=== PATIENT | male | born 1960 | race Caucasian/White ===

== ENCOUNTER 2022-04-28 20:43 | Emergency (ER) | payer OTHER ==
[~2022-04-28 20:43] MED LIST: AMIODARONE HCL200 MG PO; ASPIRIN EC81 MG PO; ATORVASTATIN CA20 MG PO; CARVEDILOL12.5 MG PO; MAGNESIUM250 M1 PO; NITROGLYCERIN0.4 MG SL; VALSARTAN80 MG PO; VITAMIN D350 MC3 PO; XARELTO20 MG PO
[2022-04-28 21:25] LABS: HEMOGLOBIN 14.4 gm/dl (14.0-17.5); RED BLOOD COUNT 4.68 M/UL (4.20-5.50); WHITE BLOOD COUNT 5.9 K/UL (4.5-11.0)
[2022-04-28 21:48] LABS: BUN/CREATININE RATIO 14 (0-10)
== END 2022-04-29 00:46 | disposition home or self-care (01) ==
LOC: ER1 20:43
PROVIDERS: Family Medicine
DX: E87.8 Other disorders of electrolyte and fluid balance, not elsewhere classified (principal); R20.2 Paresthesia of skin; I12.9 Hypertensive chronic kidney disease with stage 1 through stage 4 chronic kidney disease, or unspecified chronic kidney disease; N18.9 Chronic kidney disease, unspecified; I48.0 Paroxysmal atrial fibrillation; I25.5 Ischemic cardiomyopathy; E78.5 Hyperlipidemia, unspecified; Z79.01 Long term (current) use of anticoagulants; Z95.810 Presence of automatic (implantable) cardiac defibrillator; Z88.0 Allergy status to penicillin; Z88.8 Allergy status to other drugs, medicaments and biological substances
CPT/HCPCS: 70450; 80053; 81001; 82550; 82553; 84439; 84443; 84484; 85025; 93005; 99284

== ENCOUNTER → 2022-06-24 | Outpatient (CLI) | payer OTHER | LOC: HEART 5 08:52 | DX: I48.91 Unspecified atrial fibrillation (principal) | CPT/HCPCS: 94060; 94729 ==